=== PATIENT | male | born 1995 | race Caucasian/White ===

== ENCOUNTER 2024-11-03 08:56 | Emergency (ER) | payer SELFPAY ==
[~2024-11-03] VITALS: Ht 170.2 cm; Wt 75.0 kg
[2024-11-03 09:01] VITALS: O2SAT 98
[2024-11-03] MEDS ORDERED: BO1 TP (09:28)
[2024-11-03 10:05] VITALS: BP 120/86; PULSE 80; RESP 16; TEMP 35.7; O2SAT 98
== END 2024-11-03 10:06 | disposition home or self-care (01) ==
LOC: ER 08:56
DX: S61.431A Puncture wound without foreign body of right hand, initial encounter (principal); W34.00XA Accidental discharge from unspecified firearms or gun, initial encounter; Y93.89 Activity, other specified; Y92.89 Other specified places as the place of occurrence of the external cause; Y99.8 Other external cause status
CPT/HCPCS: 99282; Z7610

== ENCOUNTER 2024-11-04 16:17 | Emergency (ER) | payer SELFPAY ==
[~2024-11-04] VITALS: Ht 175.3 cm; Wt 80.0 kg
[~2024-11-04 16:17] MED LIST: BO1 TP
[2024-11-04] MEDS: KETOROLAC 30MG/ML VIAL IM ONE (18:53)
[2024-11-04] MEDS: BACITRACIN ZINC OINT UDPKT TOP ONE (18:53)
[2024-11-04 19:49] VITALS: BP 98/58; PULSE 69; RESP 12; TEMP 36.7; O2SAT 99
== END 2024-11-04 19:51 | disposition home or self-care (01) ==
LOC: ER 16:17
DX: S61.431A Puncture wound without foreign body of right hand, initial encounter (principal); W34.00XA Accidental discharge from unspecified firearms or gun, initial encounter; Y93.89 Activity, other specified; Y92.89 Other specified places as the place of occurrence of the external cause; Y99.8 Other external cause status
CPT/HCPCS: 96372; 99283; J1885; Z7610